=== PATIENT | male | born 1980 | race Caucasian/White ===

== ENCOUNTER 2019-07-25 20:46 | Emergency (ER) | payer OTHER ==
[2019-07-25] MEDS ORDERED: VERELAN360 MG PO (20:53)
[2019-07-25] MEDS ORDERED: VIBRAMYCIN HYC100 MG PO (21:42)
[2019-07-25 21:52] VITALS: BP 133/94
--- NOTE | 2019-07-26 10:37 | NUR ---
Patient called and states he is unsure about when last TD was given. He states he will contact PCP when he gets home to update if needed.
== END 2019-07-25 21:52 | disposition home or self-care (01) ==
LOC: ED 20:46
DX: S30.861A Insect bite (nonvenomous) of abdominal wall, initial encounter (principal); L03.311 Cellulitis of abdominal wall; I10 Essential (primary) hypertension; W57.XXXA Bitten or stung by nonvenomous insect and other nonvenomous arthropods, initial encounter; Y92.009 Unspecified place in unspecified non-institutional (private) residence as the place of occurrence of the external cause